=== PATIENT | female | born 2000 | race Caucasian/White ===

== ENCOUNTER → 2022-06-12 | Outpatient (CLI) | payer BC, SELFPAY ==
[2022-06-12 14:38] LABS: Hematocrit 42.1 % (37-47); Mean Corp Hgb Conc 33.3 g/dL (32-36); Mean Corpuscular Hgb 27.6 pg (27.0-32.0); Mean Platelet Vol. 9.3 fl (6.2-12.0); Platelet Count 376 K/mm3 (150-450); RBC Distribution Width CV 12.8 % (11.6-14.6); RBC Distribution Width SD 38.3 fl (35.1-43.9); Red Blood Count 5.07 M/mm3 (4.2-5.4); White Blood Count 11.9 K/mm3 (4.4-11.0)
[2022-06-12 14:53] LABS: BNP,B-Type NATRIURETIC PEPTIDE 10.6 pg/mL (0-100)
[2022-06-12 15:04] LABS: ALB/GLOB Ratio 0.7 RATIO (0.9-2.4); AST(SGOT) 12 U/L (15-37); Alanine Aminotransfer ALT/SGPT 18 U/L (13-56); Albumin, Serum 3.3 g/dL (3.2-5.0); Alkaline Phosphatase 79 U/L (45-117); Anion Gap 11 (5-15); BUN 8 mg/dL (7-18); BUN/Creat Ratio 10.8 RATIO (10-20); Calcium,Total 9.3 mg/dL (8.5-10.1); Chloride 104 mmol/L (98-107); Creatinine, Serum 0.74 mg/dL (0.55-1.02); EST Glomerular Filtration Rate 106 mL/min (>60); Est Glom Filt Rate - Afr Amer 128 mL/min (>60); Globulin 4.6 g/dL (2.2-4.2); Glucose 75 mg/dL (74-106); Potassium 3.7 mmol/L (3.5-5.1); Protein, Total 7.9 g/dL (6.4-8.2); Sodium Level 139 mmol/L (136-145); Thyroid Stim Hormone (TSH) 3.49 uIU/mL (0.358-3.74)
== END | disposition home or self-care (01) ==
PROVIDERS: Referring Provider Nurse Practitioner Family; Visit Provider Nurse Practitioner Family
DX: K52.9 Noninfective gastroenteritis and colitis, unspecified (principal)
CPT/HCPCS: 36415; 80053; 83880; 84439; 84443; 85027

== ENCOUNTER 2022-06-15 12:19 | Day surgery (SDC) | payer BC, SELFPAY ==
--- NOTE | 2022-06-15 | COLBX_PTH ---
PATIENT: TRUE OLVERA LOC: EN U#:[id number] AGE/SX: 22/F ROOM: RE06/15/[address]: Dr. Ashley Everett MD : 2000 BED: DIS: 06/15/2022 SPEC #: [id number] RECD: 06/16/22 10:07 STATUS: MIGEL JESSICA #: [id number] ARIADNA: 06/15/22 00:[address]: Ashley Everett DEPT: SURGICAL PATHOLOGY RECD BY: Bryon Matt ENTERED: 06/16/22 10:07 SP TYPE: COLON BX CLARISSE DR: Birdie [facility] Tissues: A - Ileum, NOS B - COLON BIOPSY Procedures: Surgery Specimen Level IV HEADER OPERATION: Colonoscopy with biopsies (MAC) PRE-OP DIAGNOSIS: Chronic diarrhea TISSUE SUBMITTED: A. Terminal ileum biopsy, B. Random colon biopsy MICROSCOPIC DIAGNOSIS A. Terminal ileum, biopsy: No pathologic change. B. Colon, random biopsy: No pathologic change. AM:jan 06/19/2022 MICROSCOPIC DESCRIPTION Slides are reviewed. GROSS DESCRIPTION A - Received in fixative is one container labeled with the patient's name and designated terminal ileum biopsy. The specimen consists of one irregular fragment of light green soft tissue that measures 0.3 x 0.3 x 0.1 cm. The specimen is totally submitted in one cassette. B - Received in fixative is one container labeled with the patient's name and designated random colon biopsy. The specimen consists of multiple irregular fragments of light green soft tissue that in aggregate measure 1.5 x 1 x 0.1 cm. The specimen is totally submitted in one cassette. / SJ:jan 06/16/2022 TC:5 CPT: 29521 x2
[2022-06-15 12:56] LABS: Internal QC Validated? YES +Cl - CLEAR BKGD; Pregnancy, Urine Negative Negative
[2022-06-15] MEDS: Lactated Ringers 1,000 ML 15 ML IV (13:03)
[2022-06-15 13:05] VITALS: BP 140/73; PULSE 96; RESP 18; TEMP 36.6; O2SAT 100; BMI 49.7
--- NOTE | 2022-06-15 13:25 | PCM.HP.BLA ---
History and Physical Date of Admission: 06/15/22 Date of Service:? 06/12/22 MR#: [id number] Acct: [id number] Name:? TRUE OLVERA Rep #: [id number] : 2000 ? ? Provider: Dr. Ashley Everett MD Age/Sex:? 22/F ? ? Location: [facility] Status: Signed Intake Vital Signs ? 06/12/2213:18 Height 5 ft 2 in Weight: 278 lb 2 oz BMI 50.8 BP 135/85 H Blood Pressure Location Lt popliteal Position Sitting Respiration 17 Pulse 111 H Pulse Source Monitor Temp 98.2 F Temp Source Temporal Pulse Oximetry (%) 100 Oxygen Delivery Method room air Intake Visit Reasons:?CHRONIC DIARRHEA, ABDOMINAL CRAMPING Chief Complaint: chronic diarrhea, abd cramping Is patient in pain?: No Allergies pine trees Allergy (Uncoded 06/12/22 13:21) Other Medications drospirenone 3 mg-ethinyl estradiol 0.02 mg tablet (Vestura (28)) 1 tab PO DAILY 06/12/22 [History Confirmed 06/12/22] PFSH Family History?(Updated 06/12/22 @ 13:17 by Renetta De La Cruz) Grandmother Diabetes Breast cancer Social History?(Updated 06/12/22 @ 13:18 by Renetta De La Cruz) Smoking Status:? Current every day smoker tobacco type: e-cigarettes alcohol intake:? never substance use type:? does not use HPI HPI HPI: 22-year-old female presents due to chronic diarrhea.? Patient states she has had diarrhea for last 5 to 6 months goes about 6-7 times a day describes as watery.? Patient states previous to that she has had looser stools usually for years but she would only go about 1-2 times a day.? Patient denies any recent antibiotics or any sick contacts or any travel.? Patient states she does have some abdominal crampiness which currently is at 3/10 but can get up to a 9/10.? Patient states it could be a little more sharp before she does have a bowel movement.? Patient states she got stool studies done at [facility] about 4 months ago but is unsure of the results.? Patient was seen at [facility] and does have additional stool studies ordered.? Patient never had a previous colonoscopy denies any family history of colon cancer. ROS General General: Yes weight change; No appetite, fatigue, colon cancer, breast cancer or weakness HEENT HEENT: No difficulty swallowing, eye injury, eye surgery, swollen glands or hoarseness Endo Endocrine: No thyroid disease, diabetes mellitus, thyroid cancer, Hair loss, heat intolerance or cold intolerance Skin Skin: No rash or changing moles Breast Breast: No left breast lump, right breast lump, nipple discharge, breast pain, abnormal mammogram, abnormal US or breast enlargement Musc Musculoskeletal: Yes back problems; No arthritis, rheumatoid arthritis, gout or joint pain Cardio Cardiovascular: No murmur, pacemaker, heart disease, atrial fibrillation, high blood pressure, heart attack, heart stent, palpitations, shortness of breat with exertion or chest pain Psych Psychiatric: Yes anxiety; No depression or hearing voices Resp Respiratory: Yes shortness of breath, No sleep apnea, No cough, No COPD, No asthma, No emphysema and No wheezing Gastro Gastrointestinal: Yes abdominal pain, Yes nausea or vomiting, Yes diarrhea, Yes blood in stool and Yes acid reflux Additional Details: small amount blood in stool at times. Oscar Hematologic: No blood thinners, No blood disorders, No bleeding, No anemia and No blood clots Neuro Neurologic: No system reviewed and no additional complaints, except as documented, No as per HPI, No abnormal gait, No abnormal hearing, No abnormal movements, No abnormal speech, No behavioral changes, No burning sensations, No confusion, No convulsions, No disequilibrium, No dizziness, No localized weakness, No frequent falls, No headache(s), No lack of coordination, No loss of vision, No memory loss, No numbness, No other visual disturbances, No radicular pain, No restless legs, No sensory deficit, No syncope, No tingling, No tremor(s), No weakness and No other Exam Const General: cooperative, healthy appearing and no acute distress HENTX Head: normal to inspection Resp Effort & Inspection: normal respiratory effort Cardio Rate: regular rate GI Inspection: non-distended Palpation: soft, no guarding and nontender Skin General: no rashes or lesions noted Neuro General: patient oriented x3 Extrem General: no clubbing, cyanosis or edema Psych Affect: normal affect Assessment and Plan Assessment and Plan (1) Chronic diarrhea: ?Status:?Chronic ? ? ? Orders: Orders Colonoscopy Today ? ? Plan Discussed with patient that if her new stool studies show anything which we can treat --we may delay the colonoscopy while that is treated. I have discussed the above with the patient. I have offered the patient colonoscopy for evaluation.? With plan of random biopsies I have explained the risks/benefits of the procedure and described the procedure.? I have discussed the risks with the patient, including but not limited to:? infection, bleeding, perforation of the GI tract requiring emergency surgery, inability to complete the procedure, injury to any internal organs, complications of anesthesia, etc. - the patient understands and agrees to proceed. I have answered all the patient's questions to the patient's satisfaction and the patient has no further questions. The patient has been given instructions for the colon cleansing preparation.? 1 day of clears, MiraLAX Dulcolax split prep. Ashley Everett M.D. Pager: [phone] [facility] [address] [place] [address], [address] [place] [address] Office: [phone] Coding Level of Care Code Off vis,new,level 3 Diagnoses Chronic diarrhea? K52.9 06/12/22 1329 <Electronically signed by Ashley Everett MD> Date Ashley Everett MD
[2022-06-15 13:55] VITALS: BP 132/79; BP 140/73; PULSE 101; RESP 16; TEMP 36.2; O2SAT 100
--- NOTE | 2022-06-15 13:59 | OP.CCLET_ITS ---
[facility] for Vic Mulligan [facility] This procedure was performed on May. My impressions and recommendations are as follows: Impressions : - Hemorrhoids found on perianal exam. - Non-bleeding internal hemorrhoids. - The entire examined colon is normal. - Biopsies were taken with a cold forceps for histology in the terminal ileum. - Five biopsies were obtained in the rectum, in the sigmoid colon, in the descending colon, in the transverse colon and in the ascending colon. Recommendations : - Discharge patient to home. - Resume previous diet. - Continue present medications. - Await pathology results. - Repeat colonoscopy at 47 y/o for screening purposes. My findings are described in the full procedure note, which is enclosed. If I can be of further assistance, please feel free to contact me at Doctor phone number(s): , Work: . Sincerely, MD Ashley Valerio MD 06/15/2022 1:58:57 PM This report has been signed electronically.
--- NOTE | 2022-06-15 13:59 | OP.COLON_ITS ---
Patient Name: Vic Church Procedure Date: 06/15/2022 12:37 PM Date of : 2000 Age: 22 Procedure: Colonoscopy Indications: Chronic diarrhea Providers: Ashley Everett MD Medicines: Monitored Anesthesia Care Patient Profile: This is a 22 year old female. Last Colonoscopy: none. The patient's first colonoscopy is today. Complications: No immediate complications. Procedure: Pre-Anesthesia Assessment: - Prior to the procedure, a History and Physical was performed, and patient medications and allergies were reviewed. The patient's tolerance of previous anesthesia was also reviewed. The risks and benefits of the procedure and the sedation options and risks were discussed with the patient. All questions were answered, and informed consent was obtained. Prior Anticoagulants: The patient has taken no previous anticoagulant or antiplatelet agents. ASA Grade Assessment: Per anesthesia. After reviewing the risks and benefits, the patient was deemed in satisfactory condition to undergo the procedure. After I obtained informed consent, the scope was passed under direct vision. Throughout the procedure, the patient's blood pressure, pulse, and oxygen saturations were monitored continuously. The colonoscope was introduced through the anus and advanced to the terminal ileum. The colonoscopy was performed without difficulty. The patient tolerated the procedure well. The quality of the bowel preparation was good. Scope In: 1:32:38 PM Scope Withdrawal Time 0 hours 12 minutes 25 seconds Scope Out: 1:50:43 PM Total Procedure Duration Time 0 hours 18 minutes 5 seconds Findings: Hemorrhoids were found on perianal exam. Non-bleeding internal hemorrhoids were found. The hemorrhoids were Grade I (internal hemorrhoids that do not prolapse). Biopsies were taken with a cold forceps in the terminal ileum for histology. Five biopsies were obtained with cold forceps for histology in a targeted manner in the rectum, in the sigmoid colon, in the descending colon, in the transverse colon and in the ascending colon. The entire examined colon appeared normal. Impression: - Hemorrhoids found on perianal exam. - Non-bleeding internal hemorrhoids. - The entire examined colon is normal. - Biopsies were taken with a cold forceps for histology in the terminal ileum. - Five biopsies were obtained in the rectum, in the sigmoid colon, in the descending colon, in the transverse colon and in the ascending colon. Recommendation: - Discharge patient to home. - Resume previous diet. - Continue present medications. - Await pathology results. - Repeat colonoscopy at 47 y/o for screening purposes. Procedure Code(s): --- Professional --- 36397, Colonoscopy, flexible; with biopsy, single or multiple Diagnosis Code(s): --- Professional --- K64.0, First degree hemorrhoids K52.9, Noninfective gastroenteritis and colitis, unspecified CPT copyright 2017 [employer]. All rights reserved. The codes documented in this report are preliminary and upon union organiser review may be revised to meet current compliance requirements. MD Ashley Valerio MD 06/15/2022 1:58:57 PM This report has been signed electronically. Number of Addenda: 0 Note Initiated On: 06/15/2022 12:37 PM
[2022-06-15 14:00] VITALS: BP 113/65; BP 140/73; PULSE 85; RESP 16; O2SAT 100
[2022-06-15 14:05] VITALS: BP 112/67; BP 140/73; PULSE 71; RESP 16; O2SAT 100
[2022-06-15 14:10] VITALS: BP 110/64; BP 140/73; PULSE 78; RESP 16; TEMP 36.4; O2SAT 100
[2022-06-15 14:24] VITALS: BP 140/73
== END 2022-06-15 14:35 | disposition home or self-care (01) ==
LOC: EN 12:21 → AC 12:25
PROVIDERS: Anesthesiology; Visit Provider Surgery
PROC: 0DJD8ZZ Inspection of Lower Intestinal Tract, Via Natural or Artificial Opening Endoscopic (ICD-10-PCS; CPT 45378; principal; 2022-06-15 13:25)
DX: K52.9 Noninfective gastroenteritis and colitis, unspecified (principal); K64.0 First degree hemorrhoids
CPT/HCPCS: 45380; 81025; 88305; J7120

== ENCOUNTER → 2022-07-18 | Outpatient (CLI) | payer BC, SELFPAY ==
--- NOTE | 2022-07-18 11:34 | US_ITS ---
STUDY: ULTRASOUND OF THE FEMALE PELVIS - COMPLETE REASON FOR EXAM: Female, 22 years old. DYSMENNORHEA TECHNIQUE: Endovaginal. Transvaginal US was obtained to better visualized the ovaries. COMPARISON: None. FINDINGS: The uterus is anteverted and is in a midline position. The uterus measures 8.7x5.5 cm. Normal uterine cervix. The endometrium measures 4.6 mm in thickness, and is hyperechoic. There is no demonstrated endometrial mass. There is no demonstrated myometrial mass. I.U.D. - The patient does not have an I.U.D. fluid in the cervix. The right ovary is visualized. The right ovary measures 3x1.5 cm. There is no right ovarian cyst or ovarian mass. There is no visualized right adnexal mass or complex lesion. There is normal arterial and normal venous vascularity. The left ovary is visualized. The left ovary measures 2.3x1.5 cm. There is no left ovarian cyst or ovarian mass. There is no visualized left adnexal mass or complex lesion. There is normal arterial and normal venous vascularity. There is minimal fluid in the cul-de-sac. Unremarkable urinary bladder. US/Transvaginal Non- IMPRESSION: There is minimal fluid in the cul-de-sac. Electronically Signed: Hugo Blair MD at 17:26 EST ,
== END | disposition home or self-care (01) ==
LOC: US 11:32
PROVIDERS: Referring Provider Nurse Practitioner Women's Health; Visit Provider Nurse Practitioner Women's Health
DX: N94.6 Dysmenorrhea, unspecified (principal)
CPT/HCPCS: 76830

== ENCOUNTER → 2022-09-01 | Outpatient (CLI) | payer BC, SELFPAY ==
--- NOTE | 2022-09-01 08:37 | RAD_ITS ---
STUDY: X-RAY - RIGHT FOOT CLINICAL: Female, 22 years old. Plantar pain. TECHNIQUE: 3 view(s) of the foot. COMPARISON: None. FINDINGS: Small inferior calcaneal spur. Normal visualized subtalar, talonavicular, calcaneocuboid, tarsal and tarsometatarsal articulations. Normal metatarsi. Normal metatarsophalangeal joint of the great toe. Normal tibial and fibular sesamoid bones. Normal interphalangeal joint of the great toe. Normal phalanges of the great toe. Normal second through fifth metatarsophalangeal joints. Normal interphalangeal joints and phalanges of the lesser toes. Normal soft tissues. RAD/Foot min 3 Views IMPRESSION: Small inferior calcaneal spur with no other abnormality. Electronically Signed: Maxwell Aleman, at 9:17 EST ,
== END | disposition home or self-care (01) ==
LOC: RAD 08:35
PROVIDERS: PCP Nurse Practitioner Family; Visit Provider Nurse Practitioner Family
DX: M72.2 Plantar fascial fibromatosis (principal)
CPT/HCPCS: 73630

== ENCOUNTER 2022-10-23 00:56 | Emergency (ER) | payer BC, SELFPAY ==
[2022-10-23 00:58] VITALS: BP 149/93; PULSE 91; RESP 16; TEMP 36.7; O2SAT 99; BMI 52.2
[2022-10-23 01:13] LABS: Mucous, Urine 0 SEEN /hpf (<or=2+); Red Blood Cells-Urine 0 SEEN /hpf (0-5); Squamous Epithelial Cells - UA 0 SEEN /hpf (5-10); White Blood Cells 0 SEEN /hpf (0-5)
[2022-10-23 01:53] LABS: Color, Urine Yellow (Yellow); Glucose, Dipstick Normal (Normal); Ketone-Dipstick Negative (Negative); Leukocyte Esterase-Dipstick Negative /ul (Negative); Nitrite-Dipstick Negative (Negative); Occult Blood-Urine Negative /ul (Negative); Protein-Dipstick Negative (Negative); Urine Bilirubin Dipstick Negative (Negative); Urine Clarity Clear (Clear); Urine Urobilinogen Normal (Normal)
[2022-10-23 01:56] LABS: Internal QC Validated? YES +Cl - CLEAR BKGD; Pregnancy, Urine Negative Negative
[2022-10-23 02:07] LABS: Bacteria RARE /hpf (None Seen)
--- NOTE | 2022-10-23 03:09 | EX.ED.DYSGE1 ---
HPI History of Present Illness Chief Complaint: Complaint Informant: patient and spouse/S.O. Narrative Narrative: Patient is a 22-year-old female with no significant past medical history. She states that she was at work the other day doing normal activity when she noticed some pain in her left back. She states she did not think much of this as it was mild. She states that there was no direct trauma or excessive activity. She states over the past few days the pain is now progressed to the right side low back. She states that the pain is worse with motion. She denies any vaginal discharge or bleeding any dysuria or concern for STD or . She states that she was unsure if this could be a possible kidney infection because of the bilateral pain and therefore comes in for evaluation. PFSH PFSH Medical History Gastric reflux Right foot pain Vapes nicotine containing substance Home Medications norethindrone (contraceptive) 0.35 mg tablet (Nelli) 0.35 mg PO DAILY 09/11/22 [History Last Taken Unknown] methocarbamol 500 mg tablet 1,000 mg PO 4X/DAY PRN PRN Muscle pain/spasm 7 days #56 tabs 10/23/22 [Rx Last Taken Unknown] Allergy/AdvReac Type Severity Reaction Status Date / Time Environmental Allergies: Allergy Rash Verified 10/23/22 01:00 Uncoded [pine] Family History Grandmother Diabetes Breast cancer Social History Smoking Status: Current every day smoker tobacco type: e-cigarettes alcohol intake: never substance use type: does not use ROS ROS ED Constitutional Constitutional ED: Denies chills or fever(s) ENT ENT ED: Denies sore throat Cardiovascular Cardiovascular: Denies chest pain Respiratory/Chest Respiratory/Chest: Denies cough or dyspnea Gastrointestinal Gastrointestinal: Denies abdominal pain, diarrhea, nausea or vomiting Genitourinary Genitourinary ED: Denies dysuria, hematuria or urinary frequency Musculoskeletal Musculoskeletal: Reports back pain Integumentary Denies rash Neurologic Neurologic: Denies headache(s), paresthesias or weakness Hematologic/Lymphatic Hematologic/Lymphatic: Denies easy bleeding or easy bruising EXAM Physical Exam Const Vital Signs: 10/23/22 00:58 Temperature 98.1 F Temperature Source Oral Pulse Rate 91 Respiratory Rate 16 Blood Pressure 149/93 H Blood Pressure Mean 111 Pulse Ox 99 Oxygen Delivery Method Room Air Positive well nourished, well developed and obese General Appearance ED: well developed Nutritional Appearance: obese Eyes PERRL and EOMs intact bilaterally Neck supple Resp normal respiratory effort and clear to auscultation bilaterally Cardio regular rate and regular rhythm GI normal to inspection, nondistended, normoactive bowel sounds, non-tender, non-distended and hepatosplenomegaly GI Narrative: No voluntary guarding or rigidity no pulsatile mass Auscultation: normoactive bowel sounds Palpation: soft Back/Spine no CVA tenderness Back/Spine Narrative: No bony deformity or step-off of the thoracic or lumbar spine no midline pain on palpation. There is increased pain with palpation of the right and left side iliac joint. There is mild tension and spasm noted of the bilateral paralumbar muscle belly region that does worsen with extension and rotation. No saddle anesthesia. Negative straight leg raise. No clonus or Babinski. Patellar reflexes are plus 2 out of 4 bilaterally Extremity normal to inspection Neuro oriented x3 and CN's II-XII intact bilaterally Sensorium / Orientation: alert Psych mental status grossly normal Skin no rashes or lesions noted Skin Narrative: No overlying soft tissue changes to suggest trauma or infection MDM MDM MDM Narrative Medical decision making narrative: Patient presented to the ER mildly hypertensive but otherwise with stable vitals. She reported pain beginning after doing normal activity at work without direct trauma or excessive activity. She had concerned about a kidney infection but by exam she does not have fever chills dysuria or hematuria. The pain is also worse with motion and therefore this goes against pyelonephritis and/or kidney stone and focuses more on musculoskeletal pain. A urine sample was obtained which shows no sign of infection or red blood cells and patient is not . She has no risk factors for cauda equina or epidural abscess and therefore do not feel there is need for further work-up. Patient will be treated symptomatically with anti-inflammatories and muscle relaxers as symptoms are most related to sacroiliac joint dysfunction and lumbosacral strain. History & Record Review Discussion w/independent historian: Patient and Significant other Lab Data Attestation: I reviewed the patient's lab results. Labs: Laboratory Results - last 24 hr 10/23/22 01:10 Urine Color Yellow Urine Clarity Clear Urine pH 6.0 Ur Specific [place] 1.020 Urine Protein Negative Urine Glucose (UA) Normal Urine Ketones Negative Urine Occult Blood Negative Urine Nitrite Negative Urine Bilirubin Negative Urine Urobilinogen Normal Ur Leukocyte Esterase Negative Urine RBC 0 SEEN Urine WBC 0 SEEN Ur Squamous Epith Cells 0 SEEN Urine Bacteria RARE Urine Mucus 0 SEEN Urine Test Negative Discharge Plan Triage Chief Complaint: Complaint ED Provider: Oral Hernandez Dx/Rx/DC Orders Clinical Impression: Acute myofascial strain of lumbosacral region, Sacroiliac joint dysfunction Instructions: Understanding Lumbosacral Strain, Understanding Sacroiliac Strain Prescriptions: New methocarbamol 500 mg tablet 1,000 mg PO 4X/DAY PRN PRN (Reason: Muscle pain/spasm) 7 Days Qty: 56 0RF Rx Instructions: 1 to 2 pills by mouth 4 times daily as needed muscle pain/spasm No Action norethindrone (contraceptive) [Nelli] 0.35 mg tablet 0.35 mg PO DAILY Primary Care Provider: Akanksha Nelson NP Referrals: Akanksha Nelson NP, [facility] [employer] [employer] [Primary Care Provider] - Activity Restrictions/Additional Instructions: Your exam indicates that you have irritation to your low back muscles. Continue your 800 mg ibuprofen 3 times a day for pain control and add the muscle relaxer as needed. Your urine shows no sign of infection or blood to suggest kidney infection or stone. Please return to the ER should you have any further concerns Disposition Disposition: Home, Self Care Discharge Date/Time: 10/23/22 03:35
[2022-10-23] MEDS: Ketorolac 30 MG/ML Syringe IM (03:18)
[2022-10-23] MEDS: Orphenadrine 60 MG/2 ML Ampul IM (03:18)
[2022-10-23 03:23] VITALS: BP 134/67; PULSE 78; RESP 18; O2SAT 100
== END 2022-10-23 03:35 | disposition home or self-care (01) ==
PROVIDERS: Emergency Provider Emergency Medicine; PCP Nurse Practitioner Family; Visit Provider Emergency Medicine
DX: S39.012A Strain of muscle, fascia and tendon of lower back, initial encounter (principal); X58.XXXA Exposure to other specified factors, initial encounter; M53.3 Sacrococcygeal disorders, not elsewhere classified; I10 Essential (primary) hypertension; K21.9 Gastro-esophageal reflux disease without esophagitis; E66.9 Obesity, unspecified; F17.290 Nicotine dependence, other tobacco product, uncomplicated
CPT/HCPCS: 81001; 81025; 96372; 99282